=== PATIENT | female | born 1950 | race Caucasian/White ===

== ENCOUNTER 2016-09-02 20:40 | Emergency (ER) | payer MEDICARE, OTHER ==
[~2016-09-02] VITALS: Ht 152.4 cm; Wt 59.5 kg
[~2016-09-02 20:40] MED LIST: ALBU8.5H3 INH; BENA40TA41 PO; CETI10CA PO; GUAI120S26 PO; HYDR-906 PO; PRED50TA PO
[2016-09-02 21:57] VITALS: Ht 152.4 cm; Wt 59.5 kg
[2016-09-03] MEDS ORDERED: SOD CHLORIDE 0.9% 1,000 ML IV STA (00:17)
--- NOTE | 2016-09-03 00:52 | RADRPT ---
PROCEDURE: XR Chest. CLINICAL INDICATION: Chest Pain. TECHNIQUE: Single frontal chest x-ray. COMPARISON: 07/08/2016 FINDINGS: Minimal enlargement of the cardiac silhouette is apparent. The patient is minimally rotated to the right.There is minimal prominence of the lung interstitium likely minimal chronic changes.. No foca l lung consolidation is seen. ECG leads projected over the chest.. Degenerative changes at right a cromioclavicular joint. IMPRESSION: Minimal enlargement of the cardiac silhouette. Please see above. RPTAT: HJES .Deandre Madrigal MD, Date Time Electronically viewed and signed by .Deandre Madrigal MD, MD on 09/03/2016 00:51 .S/
[2016-09-03 00:54] LABS: ALBUMIN 3.6 g/dl (3.3-4.9); CHLORIDE 108 mmol/L (97-110); SODIUM 142 mmol/L (135-144)
[2016-09-03 00:56] LABS: INR 1.04; PROTIME 13.6 Sec (12.2-14.2); PT RATIO 1.1
[2016-09-03 00:57] LABS: ALBUMIN/GLOBULIN RATIO 1.12; ALKALINE PHOSPHATASE 101 IU/L (42-121); ANION GAP 16 (8-16); ASPARTATE AMINO TRANSFERASE 20 IU/L (15-46); CARBON DIOXIDE 22 mmol/L (21-31); CREATININE 0.45 mg/dl (0.44-1.00); PARTIAL THROMBOPLASTIN TIME 29.1 Sec (25.0-35.0); TOTAL PROTEIN 6.8 g/dl (6.1-8.1)
[2016-09-03 00:58] LABS: ALANINE AMINOTRANSFERASE 31 IU/L (13-69); BLOOD UREA NITROGEN 24 mg/dl (7-20); CALCIUM 9.5 mg/dl (8.4-10.2); GLUCOSE 101 mg/dl (70-220)
[2016-09-03 01:05] LABS: BASOPHILS % 0.5 % (0.0-2.0); EOSINOPHILS # 0.1 10^3/ul (0.0-0.5); EOSINOPHILS % 3.1 % (0.0-7.0); HEMOGLOBIN 10.9 g/dl (12.0-16.0); LYMPHOCYTES # 1.8 10^3/ul (0.8-2.9); LYMPHOCYTES % 45.5 % (15.0-51.0); MEAN PLATELET VOLUME 8.7 fl (7.4-10.4); MONOCYTE # 0.4 10^3/ul (0.3-0.9); MONOCYTES % 11.1 % (0.0-11.0); NEUTROPHIL # 1.6 10^3/ul (1.6-7.5); NEUTROPHILS % 39.8 % (39.0-77.0); PLATELET COUNT 278 10^3/UL (140-440); RED BLOOD COUNT 4.03 10^6/ul (4.20-5.40); RED CELL DISTRIBUTION WIDTH 14.6 % (11.5-14.5)
[2016-09-03 01:07] LABS: B-TYPE NATRIURETIC PEPTIDE 89 PG/ML (0-125)
--- NOTE | 2016-09-03 01:38 | ERD ---
ER Documentation Chief Complaint Date/Time DATE: 09/03/16 TIME: 01:36 Chief Complaint SBP 215 yesterday, palpitation and sore throat/ posterior melton HPI This is a 66-year-old female comes in for various complaints related to stress. Says her blood pressure was elevated yesterday and she also had palpitations and a posterior headache. These have all since resolved since arriving to the emergency department. Patient section under a lot of stress lately. No nausea no vomiting no fevers no chills. No chest pain. No other current complaints. No suicidal or homicidal ideation. ROS All systems reviewed and are negative except as per history of present illness. Medications Home Meds Active Scripts Cetirizine Hcl* (Zyrtec*) 10 Mg Capsule, 10 MG PO DAILY, #30 TAB.CHEW Prov:GET HANSEN NP 07/09/16 Afsxnectwbv-X-Ryllcuzmyu Hb* (Guaifenesin* DM Syrup) 120 Ml Syrup, 10 ML PO Q4H Y for COUGH, #120 ML Prov:GET HANSEN NP 07/09/16 Prednisone* (Prednisone*) 50 Mg Tablet, 50 MG PO DAILY, #5 TAB Prov:GET HANSEN NP 07/09/16 Albuterol Sulfate* (Proair HFA*) 8.5 Gm Hfa.aer.ad, 2 PUFF INH Q4H Y for WHEEZING AND SOB, #1 INHALER Prov:GET HANSEN NP 07/09/16 Benazepril Hcl* (Benazepril Hcl*) 40 Mg Tablet, 40 MG PO DAILY, #30 TAB Prov:SPENCER DEL ANGEL DO 03/30/16 Hydrocodone/Acetaminophen ([place] 5-325 Tablet) 1 Each Tablet, 1 TAB PO Q6H Y for PAIN, #7 TAB Prov:SPENCER DEL ANGEL DO 03/30/16 Benazepril Hcl* (Benazepril Hcl*) 40 Mg Tablet, 40 MG PO DAILY, #30 TAB Prov:MERYL LEW MD 12/15/15 Reported Medications Benazepril Hcl* (Benazepril Hcl*) 40 Mg Tablet, 40 MG PO DAILY Y for BLOOD PRESSURE SUPPORT, TAB 4/1/16 Allergies Allergies: Coded Allergies: No Known Allergy (Unverified , 10/27/15) PMhx/Soc History of Surgery: Yes (, total hysterectomy) Anesthesia Reaction: No Hx Neurological Disorder: No Hx Respiratory Disorders: Yes (asthma) Hx Cardiac Disorders: Yes (HTN) Hx Psychiatric Problems: No Hx Miscellaneous Medical Probl: Yes (arthritis) Hx Alcohol Use: No Hx Substance Use: No Hx Tobacco Use: No Smoking Status: Never smoker Physical Exam Vitals Vital Signs Date Time Temp Pulse Resp B/P Pulse Ox O2 Delivery O2 Flow Rate FiO2 09/03/16 00:30 98.0 84 16 145/69 100 Room Air 09/02/16 21:57 98.7 95 20 151/68 99 Physical Exam Const: [] Head: Atraumatic Eyes: Normal Conjunctiva ENT: Normal External Ears, Nose and Mouth. Neck: Full range of motion..~ No meningismus. Resp: Clear to auscultation bilaterally Cardio: Regular rate and rhythm, no murmurs Abd: Soft, non tender, non distended. Normal bowel sounds Skin: No petechiae or rashes Back: No midline or flank tenderness Ext: No cyanosis, or edema Neur: Awake and alert Psych: Normal Mood and Affect Result Diagram: 09/03/16 0025 Results 24 hrs Laboratory Tests Test 09/03/16 00:25 Activated Partial Thromboplast Time 29.1Sec Alanine Aminotransferase (ALT/SGPT) 31IU/L Albumin 3.6g/dl Albumin/Globulin Ratio 1.12 Alkaline Phosphatase 101IU/L Anion Gap 16 Aspartate Amino Transf (AST/SGOT) 20IU/L B-Type Natriuretic Peptide Pending Blood Urea Nitrogen 24mg/dl Calcium Level 9.5mg/dl Carbon Dioxide Level 22mmol/L Chloride Level 108mmol/L Creatinine 0.45mg/dl Direct Bilirubin 0.00mg/dl Globulin 3.20g/dl Glucose Level 101mg/dl INR International Normalized Ratio 1.04 Indirect Bilirubin 0.0mg/dl Potassium Level 4.0mmol/L Prothrombin Time 13.6Sec Prothrombin Time Ratio 1.1 Sodium Level 142mmol/L Total Bilirubin 0.0mg/dl Total Protein 6.8g/dl Troponin I Pending Current Medications Medications (Trade) Dose Ordered Sig/Davi Route PRN Reason Start Time Stop Time Status Last Admin Dose Admin Sodium Chloride (NS) 1,000 ml @ 1,000 mls/hr Q1H STAT IV 09/03/16 00:17 09/03/16 01:16 DC 09/03/16 00:26 Procedures/MDM EKG: Rate/Rhythm: Normal Sinus Rhythm QRS, ST, T-waves: No changes consistent w/ acute ischemia Impression: No evidence of ischemia or arrhythmia Chest X-ray 1V Interpreted by me: Soft Tissue: No acute abnormalities Bones: No acute abnormalities Mediastinum/Cardiac Silhouette/Lungs: No acute abnormalities Patient's thoracic symptoms have stabilized while in the department and are stable for outpatient follow up. Exam and work up not consistent w/ ischemia, arrhythmia, PE or dissection. Departure Diagnosis: Primary Impression: Palpitations Condition: Stable RISHI MARIE Sep 03, 2016 01:38
[2016-09-03 01:44] LABS: TROPONIN-I < 0.012 ng/ml (0.00-0.12)
[2016-09-03 01:59] LABS: CONDITION 1; LH ANALYZER COMMENTS 1
[2016-09-03] MEDS ORDERED: LORA1TAB PO (02:08)
[2016-09-03 02:35] VITALS: BP 144/69; PULSE 79; RESP 16; TEMP 98.6
== END 2016-09-03 02:49 | disposition home or self-care (01) ==
LOC: E/R 20:40
DX: R00.2 Palpitations (principal); I10 Essential (primary) hypertension; J45.909 Unspecified asthma, uncomplicated; R07.9 Chest pain, unspecified; R06.02 Shortness of breath; R40.2142 Coma scale, eyes open, spontaneous, at arrival to emergency department; R40.2252 Coma scale, best verbal response, oriented, at arrival to emergency department; R40.2362 Coma scale, best motor response, obeys commands, at arrival to emergency department
CPT/HCPCS: 36415; 71010; 80053; 83880; 84484; 85025; 85610; 85730; 93005; 99285; J7030

== ENCOUNTER 2016-10-20 21:33 | Emergency (ER) | payer OTHER ==
[~2016-10-20] VITALS: Wt 58.5 kg
[~2016-10-20 21:33] MED LIST changes: +LORA1TAB PO
[2016-10-20] MEDS ORDERED: ACETAMINOPHEN 500 MG TAB PO STA (22:45)
--- NOTE | 2016-10-20 23:39 | RADRPT ---
PROCEDURE: XR Knee. CLINICAL INDICATION: Trauma TECHNIQUE: AP, lateral and oblique view of the left knee were obtained. COMPARISON: There are no similar studies submitted for comparison. FINDINGS: There is normal mineralization.There is no acute fracture or dislocation.No destructive lesion is id entified. There are tricompartmental osteoarthritic changes most prominent along the medial compartm ent. There is likely a small suprapatellar joint effusion. IMPRESSION: Likely small joint effusion. RPTAT: HIKT .Hunter Hampton MD, MD Date Time Electronically viewed and signed by .Hunter Hampton MD, MD on 10/20/2016 23:39 .T/
[2016-10-21] MEDS ORDERED: ACET500C5 PO (00:44)
[2016-10-21 00:52] VITALS: BP 142/79; PULSE 78; RESP 16
--- NOTE | 2016-10-21 01:31 | ERD ---
ER Documentation Chief Complaint Date/Time DATE: 10/21/16 TIME: 01:22 Chief Complaint left knee pain x on and off x 3 months. denies injury HPI 66 year old female with a past medical history of HTN presents to the ED complaining of left knee pain that started intermittently 3 months ago. Denies any injuries. Describes the pain as a pulsation sensation and rates it a 5 out of 10. Denies taking any medications. Denies any fever, chills, loss of sensation, loss of range of motion, chest pain, SOB, abdominal pain, nausea, vomiting. ROS All systems reviewed and are negative except as per history of present illness. Medications Home Meds Active Scripts Acetaminophen* (Tylophen*) 500 Mg Capsule, 1 CAP PO Q6H Y for PAIN AND OR ELEVATED TEMP, #20 CAP Prov:ROSALVA WHITNEY PA-C 10/21/16 Lorazepam* (Lorazepam*) 1 Mg Tablet, 1 MG PO Q8H Y for ANXIETY, #10 TAB Prov:RISHI MARIE 09/03/16 Cetirizine Hcl* (Zyrtec*) 10 Mg Capsule, 10 MG PO DAILY, #30 TAB.CHEW Prov:GET HANSEN NP 07/09/16 Wxkjhcvwdch-A-Hopwxaqaan Hb* (Guaifenesin* DM Syrup) 120 Ml Syrup, 10 ML PO Q4H Y for COUGH, #120 ML Prov:GET HANSEN NP 07/09/16 Prednisone* (Prednisone*) 50 Mg Tablet, 50 MG PO DAILY, #5 TAB Prov:GET HANSEN NP 07/09/16 Albuterol Sulfate* (Proair HFA*) 8.5 Gm Hfa.aer.ad, 2 PUFF INH Q4H Y for WHEEZING AND SOB, #1 INHALER Prov:GET HANSEN NP 07/09/16 Benazepril Hcl* (Benazepril Hcl*) 40 Mg Tablet, 40 MG PO DAILY, #30 TAB Prov:SPENCER DEL ANGEL DO 03/30/16 Hydrocodone/Acetaminophen ([place] 5-325 Tablet) 1 Each Tablet, 1 TAB PO Q6H Y for PAIN, #7 TAB Prov:SPENCER DEL ANGEL DO 03/30/16 Benazepril Hcl* (Benazepril Hcl*) 40 Mg Tablet, 40 MG PO DAILY, #30 TAB Prov:MERYL LEW MD 12/15/15 Reported Medications Benazepril Hcl* (Benazepril Hcl*) 40 Mg Tablet, 40 MG PO DAILY Y for BLOOD PRESSURE SUPPORT, TAB 10/27/15 Allergies Allergies: Coded Allergies: No Known Allergy (Unverified , 10/20/16) PMhx/Soc History of Surgery: Yes (, total hysterectomy) Anesthesia Reaction: No Hx Neurological Disorder: No Hx Respiratory Disorders: Yes (asthma) Hx Cardiac Disorders: Yes (HTN) Hx Psychiatric Problems: No Hx Miscellaneous Medical Probl: Yes (arthritis) Hx Alcohol Use: No Hx Substance Use: No Hx Tobacco Use: No Smoking Status: Never smoker Physical Exam Vitals Vital Signs Date Time Temp Pulse Resp B/P Pulse Ox O2 Delivery O2 Flow Rate FiO2 10/21/16 00:52 78 16 142/79 98 Room Air 10/20/16 21:48 98.1 83 20 154/68 99 Physical Exam Const: Ahn-xxs-lqrxuzdcw, well-nourished. In no acute distress. Head: Atraumatic, normocephalic Eyes: Normal Conjunctiva without injection ENT: Normal external ear, nose and mouth. Neck: Full range of motion. No meningismus. Resp: Clear to auscultation bilaterally. No wheezing, rhonchi, rales, or crackles. No accessory muscle use. No retractions. Cardio: Regular rate and rhythm, no murmurs Skin: No petechiae or rashes Back: No midline tenderness. No CVA tenderness. Ext: No cyanosis, or edema. Cap refill less than 2 seconds. Distal pulses intact bilaterally. Tenderness to palpation of the medial aspect of left knee. Full range of motion of bilateral lower and upper extremities. Patient was able to flex and extend her left knee. Neur: Awake and alert. Normal gait and coordination. Muscle strength 5/5. Sensation intact bilaterally. Psych: Normal Mood and Affect Results 24 hrs Current Medications Medications (Trade) Dose Ordered Sig/Davi Route PRN Reason Start Time Stop Time Status Last Admin Dose Admin Acetaminophen (Tylenol Tab) 500 mg ONCE STAT PO 3/26/17 22:45 10/20/16 22:47 DC 10/20/16 23:14 Procedures/MDM This is a 60 year-old female with a past medical history of hypertension presents the ED complaining of left knee pain. Patient is afebrile and nontoxic -appearing. Patient has normal vital signs. A left knee x-ray was ordered to further evaluate patient. Patient was given Tylenol here in the ED with improvement of her pain. PROCEDURE: XR Knee. CLINICAL INDICATION: Trauma TECHNIQUE: AP, lateral and oblique view of the left knee were obtained. COMPARISON: There are no similar studies submitted for comparison. FINDINGS: There is normal mineralization.There is no acute fracture or dislocation.No destructive lesion is identified. There are tricompartmental osteoarthritic changes most prominent along the medial compartment. There is likely a small suprapatellar joint effusion. IMPRESSION: Likely small joint effusion. Patient is placed in a left knee immobilizer. Splint Assessment: Neurovascularly intact pre and post splint placement with good fit. Small joint effusion noted on left knee x-ray. At this time a ligamentous or meniscus injury cannot be ruled out. Patient's extremity symptoms have stabilized while they have been evaluated in the department and are appropriate for outpatient follow up. No evidence of fractures, dislocations, compartment syndrome, neurologic injury, vascular injury, open joint, open fracture, tendon laceration, septic arthritis, osteomyelitis, DVT, foreign body, or other emergent conditions. Discharge medications: Tylenol Follow up with primary care physician in 1-2 days for a referral orthopedic physician for further evaluation of MRI. Instructed patient to return to the ED sooner for any worsening symptoms. Patient's questions were answered. Patient understood and agreed with discharge plan. Patient discharged stable. Departure Diagnosis: Primary Impression: Knee pain Condition: Stable Patient Instructions: Knee Pain, Uncertain Cause Referrals: [facility]E [facility] (PCP) [facility] YOU HAVE RECEIVED A MEDICAL SCREENING EXAM AND THE RESULTS INDICATE THAT YOU DO NOT HAVE A CONDITION THAT REQUIRES URGENT TREATMENT IN THE EMERGENCY DEPARTMENT. FURTHER EVALUATION AND TREATMENT OF YOUR CONDITION CAN WAIT UNTIL YOU ARE SEEN IN YOUR DOCTORS OFFICE WITHIN THE NEXT 1-2 DAYS. IT IS YOUR RESPONSIBILITY TO MAKE AN APPOINTMENT FOR FOLOW-UP CARE. IF YOU HAVE A PRIMARY DOCTOR --you should call your primary doctor and schedule an appointment IF YOU DO NOT HAVE A PRIMARY DOCTOR YOU CAN CALL OUR PHYSICIAN REFERRAL HOTLINE AT IF YOU CAN NOT AFFORD TO SEE A PHYSICIAN YOU CAN CHOSE FROM THE FOLLOWING REPLACED BY [facility] [address] [facility]. [facility] [address] [facility] [address] [facility] [address] [facility] [facility] [address] [facility]. [facility] [address] [facility]. [facility] YOU HAVE RECEIVED A MEDICAL SCREENING EXAM AND THE RESULTS INDICATE THAT YOU DO NOT HAVE A CONDITION THAT REQUIRES URGENT TREATMENT IN THE EMERGENCY DEPARTMENT. FURTHER EVALUATION AND TREATMENT OF YOUR CONDITION CAN WAIT UNTIL YOU ARE SEEN IN YOUR DOCTORS OFFICE WITHIN THE NEXT 1-2 DAYS. IT IS YOUR RESPONSIBILITY TO MAKE AN APPOINTMENT FOR FOLOW-UP CARE. IF YOU HAVE A PRIMARY DOCTOR --you should call your primary doctor and schedule and appointment IF YOU DO NOT HAVE A PRIMARY DOCTOR YOU CAN CALL OUR PHYSICIAN REFERRAL HOTLINE AT . IF YOU CAN NOT AFFORD TO SEE A PHYSICIAN YOU CAN CHOSE FROM THE FOLLOWING FORMERLY [facility] INSTITUTIONS: [facility] [address] [place] [address] [facility] [address] [place] [address] [facility] [address] [place] [address] [facility] 7 a.m.- 11 p.m. Every Day of the Week NO APPOINTMENT OR AUTHORIZATION NEEDED [facility] Hours: Mon-Fri 9:00 AM - 5:00 PM Additional Instructions: Specialist:Usted tiene laura condicin mdica que requiere que consuelo a un orthopedico especialista dentro de los prximos 1-2 palmer.POR FAVOR,CON ZHANG SEGUIMIENTO DE PRIMARIA PHSICIAN refferal. SI USTED NO TIENE UN MDICO GENERAL Y / O USTED NO PUEDE PAGAR milagros a un mdico,los siguientes schofield RECURSOS sido suministrado a usted. ES ZHANG RESPONSABILIDAD PARA SER VISTOS POR EL ESPECIALISTA: ROSALVA WHITNEY PA-C Oct 21, 2016 01:31
== END 2016-10-21 00:53 | disposition home or self-care (01) ==
LOC: FTE 21:33
DX: M25.562 Pain in left knee (principal); I10 Essential (primary) hypertension; J45.909 Unspecified asthma, uncomplicated
CPT/HCPCS: 73562

== ENCOUNTER 2017-06-01 19:51 | Emergency (ER) | payer OTHER ==
[~2017-06-01] VITALS: Ht 152.4 cm; Wt 57.7 kg
[~2017-06-01 19:51] MED LIST changes: +ACET500C5 PO
[2017-06-01 20:03] VITALS: Ht 152.4 cm; Wt 57.7 kg
[2017-06-01 21:40] VITALS: BP 161/84; PULSE 93; RESP 17; TEMP 98.6
[2017-06-01] MEDS ORDERED: ONDANSETRON 4 MG INJ IV STA (23:51)
[2017-06-02] MEDS ORDERED: LIDOCAINE/MYLANTA 40 ML BTL PO ONE
[2017-06-02] MEDS ORDERED: FAMOTIDINE 20 MG TAB PO ONE
[2017-06-02] MEDS ORDERED: FAMO-96 PO (00:02)
[2017-06-02] MEDS ORDERED: ONDA4TAB8 PO (00:02)
--- NOTE | 2017-06-02 03:46 | ERD ---
ER Documentation Chief Complaint Chief Complaint abdominal pain x 1 day HPI This is a 67-year-old female with a past medical history of hypertension who is presenting with abdominal pain for 1 day. When she first arrived, she described to the triage person abdominal pain to the right lower quadrant. However, when describing her pain to me she actually described it as epigastric in nature with nausea. The patient's symptoms waxed and waned throughout the day. It is unclear to the patient if it is associated with food or not. The patient has had previous C-sections as well as a previous hysterectomy. She does not endorse any changes to bowel movements or urination. She has not vomited. She has not felt sick otherwise. She denies any fever or chills. The patient does endorse some mild occipital headache since lying in the gurney. She does not endorse any vision changes. The patient does not endorse neck or back pain. The patient denies lightheadedness or dizziness. The patient has had no chest pain or shortness of breath or trouble breathing. The patient has had no focal deficits. The patient has had no weakness or numbness or tingling to the face or extremities. ROS All systems reviewed and are negative except as per history of present illness. Medications Home Meds Active Scripts Ondansetron Hcl* (Zofran*) 4 Mg Tablet, 4 MG PO Q6H for NAUSEA AND/OR VOMITING, #20 TAB Prov:PAULO JENNINGS MD 06/02/17 Famotidine* (Pepcid*) 20 Mg Tablet, 20 MG PO BID for 4 Days, TAB Prov:PAULO JENNINGS MD 06/02/17 Acetaminophen* (Tylophen*) 500 Mg Capsule, 1 CAP PO Q6H Y for PAIN AND OR ELEVATED TEMP, #20 CAP Prov:ROSALVA WHITNEY PA-C 10/21/16 Lorazepam* (Lorazepam*) 1 Mg Tablet, 1 MG PO Q8H Y for ANXIETY, #10 TAB Prov:RISHI MARIE 09/03/16 Cetirizine Hcl* (Zyrtec*) 10 Mg Capsule, 10 MG PO DAILY, #30 TAB.CHEW Prov:GET HANSEN NP 07/09/16 Kmsjootlros-D-Rvycrekzbw Hb* (Guaifenesin* DM Syrup) 120 Ml Syrup, 10 ML PO Q4H Y for COUGH, #120 ML Prov:GET HANSEN NP 07/09/16 Prednisone* (Prednisone*) 50 Mg Tablet, 50 MG PO DAILY, #5 TAB Prov:GET HANSEN NP 07/09/16 Albuterol Sulfate* (Proair HFA*) 8.5 Gm Hfa.aer.ad, 2 PUFF INH Q4H Y for WHEEZING AND SOB, #1 INHALER Prov:GET HANSEN NP 07/09/16 Benazepril Hcl* (Benazepril Hcl*) 40 Mg Tablet, 40 MG PO DAILY, #30 TAB Prov:SPENCER DEL ANGEL DO 03/30/16 Hydrocodone/Acetaminophen ([place] 5-325 Tablet) 1 Each Tablet, 1 TAB PO Q6H Y for PAIN, #7 TAB Prov:SPENCER DEL ANGEL DO 03/30/16 Benazepril Hcl* (Benazepril Hcl*) 40 Mg Tablet, 40 MG PO DAILY, #30 TAB Prov:MERYL LEW MD 12/15/15 Reported Medications Benazepril Hcl* (Benazepril Hcl*) 40 Mg Tablet, 40 MG PO DAILY Y for BLOOD PRESSURE SUPPORT, TAB 10/27/15 Allergies Allergies: Coded Allergies: No Known Allergy (Unverified , 10/20/16) PMhx/Soc History of Surgery: Yes (, total hysterectomy) Anesthesia Reaction: No Hx Neurological Disorder: No Hx Respiratory Disorders: Yes (asthma) Hx Cardiac Disorders: Yes (HTN) Hx Psychiatric Problems: No Hx Miscellaneous Medical Probl: Yes (arthritis) Hx Alcohol Use: No Hx Substance Use: No Hx Tobacco Use: No Smoking Status: Never smoker FmHx Family History: No coronary disease, No diabetes Physical Exam Vitals Vital Signs Date Time Temp Pulse Resp B/P Pulse Ox O2 Delivery O2 Flow Rate FiO2 06/01/17 21:40 98.6 93 17 161/84 98 Room Air 06/01/17 20:03 97.9 74 20 180/86 97 Physical Exam Const: No apparent distress, well-developed, well-nourished Head: Atraumatic Eyes: Normal Conjunctiva. Extraocular movements intact. ENT: Normal External Ears, Nose and Mouth. Neck: Full range of motion. ~ No meningismus. Resp: Clear to auscultation bilaterally Cardio: Regular rate and rhythm, no murmurs Abd: Soft, non distended. + Epigastric tenderness. No lower abdominal tenderness. Normal bowel sounds Skin: No petechiae or rashes Back: No midline or flank tenderness Ext: No cyanosis, or edema Neur: Awake and alert, oriented 4. Cranial nerves intact. No facial droop. Normal strength and sensation in all extremities. Coordination with finger to nose normal. Psych: Normal Mood and Affect Result Diagram: 06/01/17214406/01/172144 Results 24 hrs Laboratory Tests Test 06/01/17 21:40 06/01/17 21:45 Urine Color YELLOW Urine Clarity CLEAR Urine pH 5.0 Urine Specific [place] 1.021 Urine Ketones NEGATIVEmg/dL Urine Nitrite NEGATIVEmg/dL Urine Bilirubin NEGATIVEmg/dL Urine Urobilinogen NEGATIVEmg/dL Urine Leukocyte Esterase TRACELeu/ul Urine Microscopic RBC 5/HPF Urine Microscopic WBC 4/HPF Urine Mucus FEW/HPF Urine Hemoglobin NEGATIVEmg/dL Urine Glucose NEGATIVEmg/dL Urine Total Protein NEGATIVEmg/dl White Blood Count 9.110^3/ul Red Blood Count 4.3810^6/ul Hemoglobin 12.0g/dl Hematocrit 37.2% Mean Corpuscular Volume 84.9fl Mean Corpuscular Hemoglobin 27.4pg Mean Corpuscular Hemoglobin Concent 32.3g/dl Red Cell Distribution Width 14.0% Platelet Count 25422^3/UL Mean Platelet Volume 9.9fl Neutrophils % 75.8% Lymphocytes % 16.6% Monocytes % 6.5% Eosinophils % 0.7% Basophils % 0.2% Nucleated Red Blood Cells % 0.0/100WBC Neutrophils # 6.910^3/ul Lymphocytes # 1.510^3/ul Monocytes # 0.610^3/ul Eosinophils # 0.110^3/ul Basophils # 0.010^3/ul Nucleated Red Blood Cells # 0.010^3/ul Sodium Level 144mmol/L Potassium Level 4.4mmol/L Chloride Level 110mmol/L Carbon Dioxide Level 26mmol/L Anion Gap 12 Blood Urea Nitrogen 16mg/dl Creatinine 0.43mg/dl Glucose Level 95mg/dl Calcium Level 10.1mg/dl Total Bilirubin 0.3mg/dl Direct Bilirubin 0.00mg/dl Indirect Bilirubin 0.3mg/dl Aspartate Amino Transf (AST/SGOT) 22IU/L Alanine Aminotransferase (ALT/SGPT) 38IU/L Alkaline Phosphatase 114IU/L Total Protein 7.6g/dl Albumin 4.0g/dl Globulin 3.60g/dl Albumin/Globulin Ratio 1.11 Lipase 51U/L Current Medications Medications (Trade) Dose Ordered Sig/Davi Route PRN Reason Start Time Stop Time Status Last Admin Dose Admin Famotidine (Pepcid) 20 mg ONCE ONCE PO 06/02/17 00:00 06/02/17 00:01 DC 06/02/17 00:08 Ondansetron HCl (Zofran Inj) 4 mg ONCE STAT IV 06/01/17 23:51 06/01/17 23:53 DC 06/02/17 00:07 Miscellaneous Medication (Gi Cocktail (2)) 40 ml ONCE ONCE PO 06/02/17 00:00 06/02/17 00:01 DC 06/02/17 00:08 Procedures/[facility] MDM The patient's presentation warrants further investigation. The patient is very well-appearing. She does endorse epigastric tenderness which will be worked up further. I have low suspicion for a cardiac etiology. LABS The patient's blood work was obtained and reviewed. The patient's CBC shows no leukocytosis or left shift. The patient is afebrile and does not appear systemically ill. I do not suspect a systemic infection. The patient is not anemic today. The patient's platelet count is unremarkable. The patient's CMP shows no signs of metabolic or electrolyte abnormality. The patient has normal renal and hepatic function testing. The patient's lipase is negative. The patient's urinalysis shows 1+ leuk esterase with only a few WBCs. There are no nitrates or bacteria. I have low suspicion for urinary tract infection. A urine culture will be sent off but I do not intend to treat at this time. TREATMENT/DISPOSITION The patient was given IV fluids, Pepcid and a GI cocktail in the emergency department with resolution of her symptoms. The patient's blood work is reassuring. The patient's vital signs are also reassuring. I have lower suspicion for appendicitis, and the decision was made not to obtain a CT scan at this time. I also have decreased suspicion for mesenteric ischemia or ischemic colitis. The patient did not have a pulsatile palpable mass. I have low suspicion for AAA. The patient was instructed to return to the emergency department within 8 hours if her symptoms recur or worsen. The patient was given prescriptions for Pepcid and Zofran. At this time, I feel that the patient stable for discharge. He will need follow -up with his primary care physician in 2-3 days. He will be given strict precautions with which to return to the emergency department. The patient's blood pressure was elevated at greater than 120/80 while in the emergency department. The patient was otherwise stable with no evidence of hypertensive urgency or emergency. The patient will require reevaluation of his blood pressure in 2-3 days, but this may be completed by a primary care physician as an outpatient. He does not require admission for blood pressure control. Departure Diagnosis: Primary Impression: Abdominal pain Abdominal location: epigastric Qualified Code: R10.13 - Epigastric pain Condition: Stable Patient Instructions: Abdominal Pain Referrals: JOE NI (PCP) PAULO JENNINGS MD Jun 02, 2017 03:45
== END 2017-06-02 00:15 | disposition home or self-care (01) ==
LOC: E/R 19:51
DX: R10.13 Epigastric pain (principal); I10 Essential (primary) hypertension; J45.909 Unspecified asthma, uncomplicated
CPT/HCPCS: 36415; 80053; 81001; 83690; 85025; 87086; 96374; 99284; J2405

== ENCOUNTER 2017-12-06 15:41 | Inpatient (IN) | END 2017-12-07 14:45 | disposition home or self-care (01) | DRG 343 ==